=== PATIENT | female | born 1935 | race Two or more races ===

== ENCOUNTER → 2016-11-18 | Outpatient (CLI) | payer OTHER ==
[~2016-11-18] MED LIST: AML5T PO; ASP81EC PO; B-CO-5 PO; CARV6.25 PO; CHOL20006 PO; FER325T PO; FERR325T PO; LISI-646 PO; NOVOLIN SC; OMEP20TA44 PO; SERT-275 PO; SIMV10TA84 PO
[2016-11-18 11:06] LABS: Basophils # (auto) 0 uL; Basophils % (auto) 0.3 % (0.0-2.0); DEFINITIVE VIEW TRANSMISSION; Eosinophils # (auto) 0.1 uL; Eosinophils % (auto) 3.2 % (0.0-7.0); Hematocrit 23.7 % (36.0-46.0); Hemoglobin 7.6 g/dL (12.2-16.2); Lymphocytes # (auto) 0.7 uL; Mean Corpuscular Hemoglobin 31.2 pg (28.0-32.0); Mean Corpuscular Hgb Conc. 31.9 g/dL (32.0-36.0); Mean Corpuscular Volume 97.8 fL (80.0-100.0); Mean Platelet Volume 6.5 fL (7.4-10.4); Monocytes # (auto) 0.4 uL; Monocytes % (auto) 8.3 % (0.0-12.0); Neutrophils # (auto) 3.3 uL; Neutrophils % (auto) 73.2 % (37.0-80.0); Platelet Count (auto) 198 10^3/uL (140-450); Red Cell Distribution Width 19.2 % (11.6-16.0); White Blood Cell 4.6 10^3/uL (4.4-10.8)
== END | disposition home or self-care (01) ==
LOC: LAB 10:26
PROVIDERS: ATTEND Internal Medicine
DX: D46.9 Myelodysplastic syndrome, unspecified (principal)
CPT/HCPCS: 36415; 85025

== ENCOUNTER 2016-11-23 10:32 | Inpatient (IN) | payer OTHER ==
[2016-11-23] VITALS (7 sets, daily range): BP systolic 142–153; BP diastolic 48–63
[~2016-11-23] VITALS: Ht 152.4 cm; Wt 55.6 kg
[2016-11-23 12:05] LABS: Basophils # (auto) 0 uL; Basophils % (auto) 0.3 % (0.0-2.0); DEFINITIVE VIEW TRANSMISSION; Eosinophils # (auto) 0.2 uL; Eosinophils % (auto) 3.5 % (0.0-7.0); Hematocrit 22.7 % (36.0-46.0); Hemoglobin 7.4 g/dL (12.2-16.2); Lymphocytes # (auto) 0.6 uL; Lymphocytes % (auto) 14.3 % (10.0-50.0); Mean Corpuscular Hgb Conc. 32.8 g/dL (32.0-36.0); Mean Corpuscular Volume 97.6 fL (80.0-100.0); Monocytes # (auto) 0.4 uL; Monocytes % (auto) 9.7 % (0.0-12.0); Neutrophils # (auto) 3.3 uL; Neutrophils % (auto) 72.2 % (37.0-80.0); Platelet Count (auto) 166 10^3/uL (140-450); Red Cell Distribution Width 17.8 % (11.6-16.0); White Blood Cell 4.5 10^3/uL (4.4-10.8)
[2016-11-23 12:30] LABS: BUN/Creatinine Ratio 18.6; Calcium 9.1 mg/dL (8.5-10.1); Potassium 4.2 mmol/L (3.5-5.1)
[2016-11-23] MEDS ORDERED: ACETAMINOPHEN 500 MG TAB PO PRN (13:00)
[2016-11-23] MEDS ORDERED: DEXTROSE (50%) 50ML SYRG IV PRN (13:00)
[2016-11-23] MEDS ORDERED: ONDANSETRON HCL 4 MG/2 ML VIAL IV PRN (13:00)
[2016-11-23] MEDS ORDERED: PANTOPRAZOLE SODIUM 40 MG/10 ML VIAL IV ONE (13:00)
[2016-11-23] MEDS ORDERED: HYDROcodone-ACET 5/325MG TAB PO PRN (13:00)
[2016-11-23] MEDS ORDERED: LORazepam 0.5 MG TAB PO PRN (13:00)
[2016-11-23] MEDS ORDERED: TEMAZEPAM 15 MG CAP PO PRN (13:00)
[2016-11-23] MEDS ORDERED: LACTULOSE 20Gm/30ML SOLN PO PRN (13:00)
[2016-11-23] MEDS ORDERED: MORPHINE SULF INJ 2 MG/ML SYRINGE 1ML IV PRN ×2 (13:00)
[2016-11-23] MEDS ORDERED: NITROGLYCERIN 0.4 MG SL TAB SL PRN (13:00)
[2016-11-23] MEDS: D5W/SOD CHLO 0.9% 1,000 ML IV SCH ×2 (14:00→14:17)
[2016-11-23] MEDS: InsuLIN REG 1unit/0.01ml Soln (100units/ml) SC SCH ×3 (14:17→22:08)
[2016-11-23] MEDS: ACCU-CHEK COMFORT CURVE STRIP VI SCH ×3 (14:19→22:07)
[2016-11-23] MEDS ORDERED: EPOETIN ALFA 10,000 UNIT/1 ML VIAL IV ONE ×2 (15:00→16:30)
[2016-11-23 18:08] LABS: Urine RBC None Seen /hpf (0 - 4)
[2016-11-23 18:37] LABS: Urine Bilirubin Negative (Negative); Urine Blood Negative /uL (Negative); Urine Color Yellow (Yellow); Urine Glucose Normal (Normal); Urine Ketone Negative (Negative); Urine Nitrite Negative (Negative); Urine Squamous Epithelial Cell FEW /hpf (<5); Urine Urobilinogen Normal (Negative)
[2016-11-23 18:46] LABS: Hematocrit 19.8 % (36.0-46.0)
[2016-11-23 19:25] LABS: Hemoglobin 6.5 g/dL (12.2-16.2)
[2016-11-24] VITALS (8 sets, daily range): BP systolic 132–155; BP diastolic 52–68
[2016-11-24] MEDS: ACCU-CHEK COMFORT CURVE STRIP VI SCH ×3 (01:52→10:05)
[2016-11-24 07:04] LABS: Basophils # (auto) 0 uL; DEFINITIVE VIEW TRANSMISSION; Eosinophils # (auto) 0.2 uL; Eosinophils % (auto) 3.8 % (0.0-7.0); Hematocrit 27.7 % (36.0-46.0); Hemoglobin 9.2 g/dL (12.2-16.2); Lymphocytes # (auto) 0.7 uL; Lymphocytes % (auto) 17.4 % (10.0-50.0); Mean Corpuscular Hemoglobin 30.7 pg (28.0-32.0); Mean Corpuscular Hgb Conc. 33.3 g/dL (32.0-36.0); Mean Corpuscular Volume 92.3 fL (80.0-100.0); Mean Platelet Volume 6.8 fL (7.4-10.4); Monocytes # (auto) 0.4 uL; Monocytes % (auto) 10.8 % (0.0-12.0); Neutrophils # (auto) 2.7 uL; Platelet Count (auto) 138 10^3/uL (140-450)
[2016-11-24 07:22] LABS: BUN/Creatinine Ratio 18.3; Bilirubin, Total 0.7 mg/dL (0.2-1.0); Calcium 8.2 mg/dL (8.5-10.1); Potassium 4.4 mmol/L (3.5-5.1); Total Protein 6.2 g/dL (6.4-8.2)
[2016-11-24 07:37] LABS: Anisocytosis Slight; Platelet Estimate Decreased
[2016-11-24] MEDS ORDERED: PANTOPRAZOLE 40 MG TAB PO SCH (10:00)
[2016-11-24] MEDS ORDERED: AML5T PO (10:07)
== END 2016-11-24 12:15 | disposition home or self-care (01) | DRG 840 ==
LOC: ER 10:34 → TELE 10:35 → TELE-CENTR 15:38
PROVIDERS: ADMIT Internal Medicine; ATTEND Family Medicine
PROC: 30233N1 Transfusion of Nonautologous Red Blood Cells into Peripheral Vein, Percutaneous Approach (ICD-10-PCS; principal; 2016-11-23)
PROC: 30233N1 Transfusion of Nonautologous Red Blood Cells into Peripheral Vein, Percutaneous Approach (ICD-10-PCS; 2016-11-24)
DX: C85.90 Non-Hodgkin lymphoma, unspecified, unspecified site (principal); E43 Unspecified severe protein-calorie malnutrition; I13.0 Hypertensive heart and chronic kidney disease with heart failure and stage 1 through stage 4 chronic kidney disease, or unspecified chronic kidney disease; N18.4 Chronic kidney disease, stage 4 (severe); I42.9 Cardiomyopathy, unspecified; E11.649 Type 2 diabetes mellitus with hypoglycemia without coma; D64.9 Anemia, unspecified; J44.9 Chronic obstructive pulmonary disease, unspecified; E11.22 Type 2 diabetes mellitus with diabetic chronic kidney disease; I25.10 Atherosclerotic heart disease of native coronary artery without angina pectoris; I50.9 Heart failure, unspecified; K21.9 Gastro-esophageal reflux disease without esophagitis; Z82.49 Family history of ischemic heart disease and other diseases of the circulatory system; Z83.3 Family history of diabetes mellitus; Z84.89 Family history of other specified conditions; Z88.0 Allergy status to penicillin; Z88.5 Allergy status to narcotic agent; Z79.82 Long term (current) use of aspirin; Z79.4 Long term (current) use of insulin; Z79.899 Other long term (current) drug therapy; Z90.49 Acquired absence of other specified parts of digestive tract; Z90.710 Acquired absence of both cervix and uterus; Z95.0 Presence of cardiac pacemaker; Z68.23 Body mass index [BMI] 23.0-23.9, adult
CPT/HCPCS: 36415; 36430; 80048; 80053; 80061; 81001; 82270; 82378; 82962; 83036; 85014; 85018; 85025; 85045; 85049; 85652; 86141; 86850; 86900; 86901; 86920; 93005; 94761; 96361; 96374; 96375; C9113; J0885; J1815; J7042

== ENCOUNTER 2016-11-26 14:16 | Inpatient (IN) | payer OTHER ==
[~2016-11-26] VITALS: Ht 152.4 cm; Wt 47.3 kg
[2016-11-26] MEDS ORDERED: ACETAMINOPHEN 325 MG TAB PO ONE (14:30)
[2016-11-26 15:02] LABS: Basophils # (auto) 0 uL; Eosinophils # (auto) 0 uL; Hematocrit 28.5 % (36.0-46.0); Hemoglobin 9.4 g/dL (12.2-16.2); Lymphocytes # (auto) 0.5 uL; Mean Corpuscular Hemoglobin 30.7 pg (28.0-32.0); Mean Corpuscular Hgb Conc. 32.8 g/dL (32.0-36.0); Mean Corpuscular Volume 93.8 fL (80.0-100.0); Mean Platelet Volume 6.8 fL (7.4-10.4); Monocytes # (auto) 0.5 uL; Monocytes % (auto) 7.4 % (0.0-12.0); Neutrophils # (auto) 6.2 uL; Neutrophils % (auto) 85.6 % (37.0-80.0); Platelet Count (auto) 132 10^3/uL (140-450); Red Cell Distribution Width 18.9 % (11.6-16.0); White Blood Cell 7.2 10^3/uL (4.4-10.8)
[2016-11-26 15:08] LABS: Albumin 2.8 g/dL (3.4-5.0); Calcium 7.9 mg/dL (8.5-10.1); Potassium 4.5 mmol/L (3.5-5.1)
[2016-11-26 15:14] LABS: BUN/Creatinine Ratio 16.8; Total Protein 6.4 g/dL (6.4-8.2)
[2016-11-26] MEDS ORDERED: SODIUM CHLORIDE 0.9% 500 ML IV ONE (16:30)
[2016-11-26] MEDS ORDERED: methylPREDNISolone SOD SUCC 125 MG/2 ML VL IV ONE (16:30)
[2016-11-26] MEDS ORDERED: ALBUTEROL SULF 2.5 MG/0.5ML(0.5%) NEB SOLN NEB ONE (16:30)
[2016-11-26] MEDS ORDERED: LEVOFLOXACIN 500MG 100 ML IV ONE (16:30)
[2016-11-26] MEDS ORDERED: IPRATROPIUM BROM 0.5 MG/2.5ML INH SOL NEB ONE (16:30)
[2016-11-26] MEDS ORDERED: SODIUM CHLORIDE 0.9% 1,000 ML IV SCH (16:53)
[2016-11-26] MEDS ORDERED: NITROGLYCERIN 0.4 MG SL TAB SL PRN (17:00)
[2016-11-26] MEDS ORDERED: ALBUTEROL SULF 2.5 MG/0.5ML(0.5%) NEB SOLN NEB PRN (17:00)
[2016-11-26] MEDS ORDERED: PROMETHAZINE HCL 25 MG/ML 1ML IV PRN (17:00)
[2016-11-26] MEDS ORDERED: LORazepam 0.5 MG TAB PO PRN (17:00)
[2016-11-26] MEDS ORDERED: DEXTROSE (50%) 50ML SYRG IV PRN (17:00)
[2016-11-26] MEDS ORDERED: LACTULOSE 20Gm/30ML SOLN PO PRN (17:00)
[2016-11-26] MEDS ORDERED: MORPHINE SULF INJ 2 MG/ML SYRINGE 1ML IV PRN ×2 (17:00)
[2016-11-26] MEDS ORDERED: ACETAMINOPHEN 500 MG TAB PO PRN (17:00)
[2016-11-26] MEDS ORDERED: HYDROcodone-ACET 5/325MG TAB PO PRN (17:00)
[2016-11-26] MEDS ORDERED: OSELTAMIVIR 75 MG CAP PO ONE (17:30)
[2016-11-26] MEDS: ACCU-CHEK COMFORT CURVE STRIP VI SCH ×2 (17:37→21:42)
[2016-11-26] MEDS: InsuLIN REG 1unit/0.01ml Soln (100units/ml) SC SCH ×2 (17:37→21:51)
[2016-11-26 18:00] VITALS: BP 138/56
[2016-11-26] MEDS ORDERED: CHOLECALCIFEROL (VITD3) 1,000 UNIT TAB PO ONE (18:00)
[2016-11-26] MEDS ORDERED: B-COMPLEX W/ C & FOLIC ACID(NEPHROVITE TAB) PO ONE (18:00)
[2016-11-26] MEDS ORDERED: SERTRALINE HCL 50 MG TAB PO ONE (18:00)
[2016-11-26] MEDS ORDERED: PANTOPRAZOLE 40 MG TAB PO ONE (18:00)
[2016-11-26] MEDS ORDERED: ASPirin-EC 81 mg tab PO ONE (18:00)
[2016-11-26] MEDS ORDERED: amLODIPine BESYLATE 5 MG TAB PO ONE (18:00)
[2016-11-26] MEDS: ALBUTEROL SULF 2.5 MG/0.5ML(0.5%) NEB SOLN NEB SCH (19:25)
[2016-11-26] MEDS: IPRATROPIUM BROM 0.5 MG/2.5ML INH SOL NEB SCH (19:25)
[2016-11-26] MEDS ORDERED: FUROSEMIDE 40 MG/4 ML VIAL IV ONE (19:30)
[2016-11-26] MEDS: FERROUS SULFATE 325 MG TAB PO SCH (19:41)
[2016-11-26] MEDS: ENOXAPARIN SOD 30 MG/0.3 ML SYRINGE SC SCH (19:48)
[2016-11-26] MEDS: CARVEDILOL 3.125 MG TAB PO SCH (21:41)
[2016-11-26] MEDS: PRAVASTATIN SODIUM 20 MG TAB PO SCH (21:42)
[2016-11-26] MEDS: TEMAZEPAM 15 MG CAP PO PRN (21:43)
[2016-11-26 22:00] VITALS: BP 135/57
[2016-11-27] MEDS: IPRATROPIUM BROM 0.5 MG/2.5ML INH SOL NEB SCH ×4 (01:25→19:05)
[2016-11-27] MEDS: ALBUTEROL SULF 2.5 MG/0.5ML(0.5%) NEB SOLN NEB SCH ×4 (01:25→19:04)
[2016-11-27 04:59] VITALS: BP 131/52
[2016-11-27 05:56] LABS: Basophils # (auto) 0 uL; Eosinophils # (auto) 0 uL; Hematocrit 30.1 % (36.0-46.0); Hemoglobin 9.8 g/dL (12.2-16.2); Lymphocytes # (auto) 0.3 uL; Lymphocytes % (auto) 9.1 % (10.0-50.0); Mean Corpuscular Hemoglobin 30.5 pg (28.0-32.0); Mean Corpuscular Hgb Conc. 32.7 g/dL (32.0-36.0); Mean Corpuscular Volume 93.3 fL (80.0-100.0); Mean Platelet Volume 7.3 fL (7.4-10.4); Monocytes # (auto) 0 uL; Monocytes % (auto) 0.5 % (0.0-12.0); Neutrophils # (auto) 3.2 uL; Neutrophils % (auto) 90.4 % (37.0-80.0); Platelet Count (auto) 127 10^3/uL (140-450); Red Cell Distribution Width 17.7 % (11.6-16.0); White Blood Cell 3.5 10^3/uL (4.4-10.8)
[2016-11-27 06:11] LABS: Albumin 2.9 g/dL (3.4-5.0); BUN/Creatinine Ratio 20.2; Calcium 7.9 mg/dL (8.5-10.1); Potassium 4.1 mmol/L (3.5-5.1)
[2016-11-27 06:14] LABS: Bilirubin, Total 0.8 mg/dL (0.2-1.0); Total Protein 6.7 g/dL (6.4-8.2)
[2016-11-27] MEDS: methylPREDNISolone SOD SUCC 40 MG/ML VL IV SCH ×4 (06:19→18:14)
[2016-11-27] MEDS: ACCU-CHEK COMFORT CURVE STRIP VI SCH ×4 (06:19→22:07)
[2016-11-27] MEDS: InsuLIN REG 1unit/0.01ml Soln (100units/ml) SC SCH ×4 (06:27→22:10)
[2016-11-27 09:00] VITALS: BP 139/56
[2016-11-27] MEDS: LISINOPRIL 20 MG TAB PO SCH (09:15)
[2016-11-27] MEDS: PANTOPRAZOLE 40 MG TAB PO SCH (09:15)
[2016-11-27] MEDS: ASPirin-EC 81 mg tab PO SCH (09:15)
[2016-11-27] MEDS: CHOLECALCIFEROL (VITD3) 1,000 UNIT TAB PO SCH (09:16)
[2016-11-27] MEDS: SERTRALINE HCL 50 MG TAB PO SCH (09:16)
[2016-11-27] MEDS: FERROUS SULFATE 325 MG TAB PO SCH ×2 (09:17→18:16)
[2016-11-27] MEDS: B-COMPLEX W/ C & FOLIC ACID(NEPHROVITE TAB) PO SCH (09:17)
[2016-11-27] MEDS: CARVEDILOL 3.125 MG TAB PO SCH ×2 (09:17→21:53)
[2016-11-27] MEDS: FUROSEMIDE 40 MG/4 ML VIAL IV SCH (09:18)
[2016-11-27] MEDS: LEVOFLOXACIN 250MG 50 ML IV SCH (09:18)
[2016-11-27] MEDS: amLODIPine BESYLATE 5 MG TAB PO SCH (09:18)
[2016-11-27] MEDS: ENOXAPARIN SOD 30 MG/0.3 ML SYRINGE SC SCH (09:19)
[2016-11-27] MEDS ORDERED: OSELTAMIVIR 30 MG CAP PO SCH (10:00)
[2016-11-27] MEDS ORDERED: PATIENTS OWN MEDICATION (Ferrous Sulfate 325 MG) PO SCH ×2 (10:00)
[2016-11-27 12:47] VITALS: BP 138/59
[2016-11-27 16:46] VITALS: BP 126/62
[2016-11-27 21:32] VITALS: BP 133/60
[2016-11-27] MEDS: PRAVASTATIN SODIUM 20 MG TAB PO SCH (21:53)
[2016-11-27] MEDS: TEMAZEPAM 15 MG CAP PO PRN (22:11)
[2016-11-28] MEDS: ALBUTEROL SULF 2.5 MG/0.5ML(0.5%) NEB SOLN NEB SCH ×5 (00:20→23:32)
[2016-11-28] MEDS: IPRATROPIUM BROM 0.5 MG/2.5ML INH SOL NEB SCH ×5 (00:20→23:32)
[2016-11-28 05:27] VITALS: BP 129/58
[2016-11-28] MEDS: methylPREDNISolone SOD SUCC 40 MG/ML VL IV SCH ×2 (06:13)
[2016-11-28] MEDS: ACCU-CHEK COMFORT CURVE STRIP VI SCH ×4 (06:34→21:41)
[2016-11-28] MEDS: InsuLIN REG 1unit/0.01ml Soln (100units/ml) SC SCH ×4 (06:39→22:20)
[2016-11-28 08:41] VITALS: BP 134/63
[2016-11-28] MEDS: SERTRALINE HCL 50 MG TAB PO SCH (09:09)
[2016-11-28] MEDS: amLODIPine BESYLATE 5 MG TAB PO SCH (09:10)
[2016-11-28] MEDS: CARVEDILOL 3.125 MG TAB PO SCH ×2 (09:10→21:40)
[2016-11-28] MEDS: B-COMPLEX W/ C & FOLIC ACID(NEPHROVITE TAB) PO SCH (09:10)
[2016-11-28] MEDS: ASPirin-EC 81 mg tab PO SCH (09:10)
[2016-11-28] MEDS: FERROUS SULFATE 325 MG TAB PO SCH ×2 (09:10→17:20)
[2016-11-28] MEDS: FUROSEMIDE 40 MG/4 ML VIAL IV SCH (09:11)
[2016-11-28] MEDS: ENOXAPARIN SOD 30 MG/0.3 ML SYRINGE SC SCH (09:11)
[2016-11-28] MEDS: LISINOPRIL 20 MG TAB PO SCH (09:11)
[2016-11-28] MEDS: PANTOPRAZOLE 40 MG TAB PO SCH (09:11)
[2016-11-28] MEDS: CHOLECALCIFEROL (VITD3) 1,000 UNIT TAB PO SCH (09:11)
[2016-11-28] MEDS: LEVOFLOXACIN 250MG 50 ML IV SCH (09:12)
[2016-11-28 12:33] VITALS: BP 131/56
[2016-11-28 16:48] VITALS: BP 135/63
[2016-11-28 21:29] VITALS: BP 132/53
[2016-11-28] MEDS: PRAVASTATIN SODIUM 20 MG TAB PO SCH (21:41)
[2016-11-29 05:13] VITALS: BP 133/61
[2016-11-29] MEDS: ALBUTEROL SULF 2.5 MG/0.5ML(0.5%) NEB SOLN NEB SCH ×3 (05:49→18:43)
[2016-11-29] MEDS: IPRATROPIUM BROM 0.5 MG/2.5ML INH SOL NEB SCH ×3 (05:49→18:43)
[2016-11-29] MEDS: InsuLIN REG 1unit/0.01ml Soln (100units/ml) SC SCH ×4 (06:28→22:34)
[2016-11-29] MEDS: ACCU-CHEK COMFORT CURVE STRIP VI SCH ×4 (06:28→22:27)
[2016-11-29] MEDS ORDERED: FUROSEMIDE 40 MG/4 ML VIAL IV ONE (08:30)
[2016-11-29 09:00] VITALS: BP 146/58
[2016-11-29] MEDS: PANTOPRAZOLE 40 MG TAB PO SCH (09:39)
[2016-11-29] MEDS: LISINOPRIL 20 MG TAB PO SCH (09:39)
[2016-11-29] MEDS: ASPirin-EC 81 mg tab PO SCH (09:40)
[2016-11-29] MEDS: FERROUS SULFATE 325 MG TAB PO SCH ×2 (09:40→18:16)
[2016-11-29] MEDS: amLODIPine BESYLATE 5 MG TAB PO SCH (09:40)
[2016-11-29] MEDS: SERTRALINE HCL 50 MG TAB PO SCH (09:40)
[2016-11-29] MEDS: CHOLECALCIFEROL (VITD3) 1,000 UNIT TAB PO SCH (09:41)
[2016-11-29] MEDS: B-COMPLEX W/ C & FOLIC ACID(NEPHROVITE TAB) PO SCH (09:41)
[2016-11-29] MEDS: CARVEDILOL 3.125 MG TAB PO SCH ×2 (09:41→22:27)
[2016-11-29] MEDS: FUROSEMIDE 40 MG/4 ML VIAL IV SCH (09:42)
[2016-11-29 12:52] VITALS: BP 132/64
[2016-11-29 16:48] VITALS: BP 137/62
[2016-11-29 20:45] VITALS: BP 137/62
[2016-11-29 22:00] VITALS: BP 144/60
[2016-11-29] MEDS: PRAVASTATIN SODIUM 20 MG TAB PO SCH (22:26)
[2016-11-29] MEDS: COLCHICINE 0.6 MG TAB/CAP PO SCH (22:26)
[2016-11-30] MEDS: IPRATROPIUM BROM 0.5 MG/2.5ML INH SOL NEB SCH ×4 (00:29→18:50)
[2016-11-30] MEDS: ALBUTEROL SULF 2.5 MG/0.5ML(0.5%) NEB SOLN NEB SCH ×4 (00:29→18:50)
[2016-11-30 05:00] VITALS: BP 140/60
[2016-11-30 06:28] LABS: Basophils # (auto) 0 uL; Basophils % (auto) 0.1 % (0.0-2.0); Eosinophils # (auto) 0.1 uL; Hematocrit 34.9 % (36.0-46.0); Hemoglobin 11.4 g/dL (12.2-16.2); Lymphocytes # (auto) 0.7 uL; Lymphocytes % (auto) 12.9 % (10.0-50.0); Mean Corpuscular Hemoglobin 30.6 pg (28.0-32.0); Mean Corpuscular Hgb Conc. 32.6 g/dL (32.0-36.0); Mean Corpuscular Volume 93.9 fL (80.0-100.0); Mean Platelet Volume 7.4 fL (7.4-10.4); Monocytes # (auto) 0.6 uL; Monocytes % (auto) 9.7 % (0.0-12.0); Neutrophils # (auto) 4.4 uL; Neutrophils % (auto) 76.3 % (37.0-80.0); Platelet Count (auto) 189 10^3/uL (140-450); Red Cell Distribution Width 18.5 % (11.6-16.0); White Blood Cell 5.8 10^3/uL (4.4-10.8)
[2016-11-30 06:56] LABS: BUN/Creatinine Ratio 32.8; Calcium 8.1 mg/dL (8.5-10.1); Potassium 3.5 mmol/L (3.5-5.1)
[2016-11-30] MEDS: InsuLIN REG 1unit/0.01ml Soln (100units/ml) SC SCH ×4 (07:00→22:27)
[2016-11-30] MEDS: ACCU-CHEK COMFORT CURVE STRIP VI SCH ×4 (07:21→21:37)
[2016-11-30] MEDS: COLCHICINE 0.6 MG TAB/CAP PO SCH ×2 (09:07→21:36)
[2016-11-30] MEDS: CHOLECALCIFEROL (VITD3) 1,000 UNIT TAB PO SCH (09:07)
[2016-11-30] MEDS: B-COMPLEX W/ C & FOLIC ACID(NEPHROVITE TAB) PO SCH (09:07)
[2016-11-30] MEDS: FERROUS SULFATE 325 MG TAB PO SCH ×2 (09:07→17:19)
[2016-11-30] MEDS: amLODIPine BESYLATE 5 MG TAB PO SCH (09:08)
[2016-11-30] MEDS: SERTRALINE HCL 50 MG TAB PO SCH (09:08)
[2016-11-30] MEDS: ASPirin-EC 81 mg tab PO SCH (09:08)
[2016-11-30] MEDS: LISINOPRIL 20 MG TAB PO SCH (09:09)
[2016-11-30] MEDS: PANTOPRAZOLE 40 MG TAB PO SCH (09:09)
[2016-11-30] MEDS: CARVEDILOL 3.125 MG TAB PO SCH ×2 (09:10→21:37)
[2016-11-30 09:14] VITALS: BP 130/52
[2016-11-30] MEDS: LISINOPRIL 10 MG TAB PO SCH (10:00)
[2016-11-30 14:04] VITALS: BP 133/63
[2016-11-30 17:01] VITALS: BP 128/57
[2016-11-30] MEDS: PRAVASTATIN SODIUM 20 MG TAB PO SCH (21:36)
[2016-11-30 21:44] VITALS: BP 131/56
[2016-12-01] MEDS: IPRATROPIUM BROM 0.5 MG/2.5ML INH SOL NEB SCH ×4 (01:00→19:13)
[2016-12-01] MEDS: ALBUTEROL SULF 2.5 MG/0.5ML(0.5%) NEB SOLN NEB SCH ×4 (01:00→19:13)
[2016-12-01 05:34] VITALS: BP 139/65
[2016-12-01 05:54] LABS: Potassium 4.1 mmol/L (3.5-5.1)
[2016-12-01 06:07] LABS: BUN/Creatinine Ratio 34.1
[2016-12-01] MEDS: ACCU-CHEK COMFORT CURVE STRIP VI SCH ×4 (06:15→22:05)
[2016-12-01] MEDS: InsuLIN REG 1unit/0.01ml Soln (100units/ml) SC SCH ×4 (06:15→22:00)
[2016-12-01 07:18] LABS: INR 1.13 (0.9-1.15); Partial Thromboplastin Time 24.4 sec (22.64-33.71); Prothrombin Time 11.6 sec (9.37-12.3)
[2016-12-01] MEDS: FERROUS SULFATE 325 MG TAB PO SCH ×2 (08:00→18:01)
[2016-12-01 08:38] VITALS: BP 133/66
[2016-12-01] MEDS: CARVEDILOL 3.125 MG TAB PO SCH ×2 (09:35→22:01)
[2016-12-01] MEDS: B-COMPLEX W/ C & FOLIC ACID(NEPHROVITE TAB) PO SCH (09:35)
[2016-12-01] MEDS: ASPirin-EC 81 mg tab PO SCH (09:35)
[2016-12-01] MEDS: COLCHICINE 0.6 MG TAB/CAP PO SCH ×2 (09:35→22:00)
[2016-12-01] MEDS: amLODIPine BESYLATE 5 MG TAB PO SCH (09:36)
[2016-12-01] MEDS: PANTOPRAZOLE 40 MG TAB PO SCH (09:36)
[2016-12-01] MEDS: SERTRALINE HCL 50 MG TAB PO SCH (09:38)
[2016-12-01] MEDS: LISINOPRIL 10 MG TAB PO SCH (09:38)
[2016-12-01] MEDS: CHOLECALCIFEROL (VITD3) 1,000 UNIT TAB PO SCH (09:38)
[2016-12-01] MEDS ORDERED: LIDOCAINE 2%HCL (LOCAL ANESTH.) INJ 20ML MDV ONE (10:06)
[2016-12-01] MEDS ORDERED: FLUCONAZOLE 200MG/100ML 100 ML IV ONE (10:30)
[2016-12-01 13:00] VITALS: BP 148/61
[2016-12-01 17:00] VITALS: BP 131/54
[2016-12-01 22:00] VITALS: BP 135/64
[2016-12-01] MEDS: PRAVASTATIN SODIUM 20 MG TAB PO SCH (22:00)
[2016-12-01] MEDS: TEMAZEPAM 15 MG CAP PO PRN (23:33)
[2016-12-02] VITALS (22 sets, daily range): BP systolic 122–164; BP diastolic 46–81
[2016-12-02] MEDS: IPRATROPIUM BROM 0.5 MG/2.5ML INH SOL NEB SCH ×4 (00:58→19:18)
[2016-12-02] MEDS: ALBUTEROL SULF 2.5 MG/0.5ML(0.5%) NEB SOLN NEB SCH ×4 (00:58→19:17)
[2016-12-02 05:56] LABS: Basophils # (auto) 0 uL; Eosinophils # (auto) 0.3 uL; Eosinophils % (auto) 4.8 % (0.0-7.0); Hematocrit 36.2 % (36.0-46.0); Hemoglobin 11.6 g/dL (12.2-16.2); Lymphocytes # (auto) 0.6 uL; Lymphocytes % (auto) 9.2 % (10.0-50.0); Mean Corpuscular Hemoglobin 30.6 pg (28.0-32.0); Mean Corpuscular Hgb Conc. 32.1 g/dL (32.0-36.0); Mean Corpuscular Volume 95.4 fL (80.0-100.0); Mean Platelet Volume 7.3 fL (7.4-10.4); Monocytes # (auto) 0.6 uL; Monocytes % (auto) 8.8 % (0.0-12.0); Neutrophils # (auto) 5.4 uL; Neutrophils % (auto) 77.2 % (37.0-80.0); Platelet Count (auto) 165 10^3/uL (140-450); Red Cell Distribution Width 18.7 % (11.6-16.0)
[2016-12-02 06:25] LABS: Potassium 4.1 mmol/L (3.5-5.1)
[2016-12-02 06:31] LABS: BUN/Creatinine Ratio 29.2; Calcium 8.6 mg/dL (8.5-10.1)
[2016-12-02] MEDS: InsuLIN REG 1unit/0.01ml Soln (100units/ml) SC SCH ×4 (06:55→22:00)
[2016-12-02] MEDS: ACCU-CHEK COMFORT CURVE STRIP VI SCH ×4 (06:55→22:00)
[2016-12-02] MEDS: FERROUS SULFATE 325 MG TAB PO SCH (08:00)
[2016-12-02] MEDS: LISINOPRIL 10 MG TAB PO SCH (10:00)
[2016-12-02] MEDS: CHOLECALCIFEROL (VITD3) 1,000 UNIT TAB PO SCH (10:00)
[2016-12-02] MEDS: B-COMPLEX W/ C & FOLIC ACID(NEPHROVITE TAB) PO SCH (10:00)
[2016-12-02] MEDS: PANTOPRAZOLE 40 MG TAB PO SCH (10:00)
[2016-12-02] MEDS: CARVEDILOL 3.125 MG TAB PO SCH ×2 (10:00→16:14)
[2016-12-02] MEDS: SERTRALINE HCL 50 MG TAB PO SCH (10:00)
[2016-12-02] MEDS: ASPirin-EC 81 mg tab PO SCH (10:00)
[2016-12-02] MEDS: amLODIPine BESYLATE 5 MG TAB PO SCH (10:00)
[2016-12-02] MEDS: FLUCONAZOLE 200MG/100ML 100 ML IV SCH (10:00)
[2016-12-02] MEDS: COLCHICINE 0.6 MG TAB/CAP PO SCH ×2 (10:00→22:42)
[2016-12-02] MEDS ORDERED: fentaNYL CITRATE 100 MCG/2 ML VL ONE (12:46)
[2016-12-02] MEDS ORDERED: MIDAZOLAM HCL 1MG/1ML-2 ML VIAL ONE (12:46)
[2016-12-02] MEDS ORDERED: LIDOCAINE 2%HCL (LOCAL ANESTH.) INJ 20ML MDV ONE (13:57)
[2016-12-02 20:48] LABS: Body Fluid Polymorphonuclear 75 %
[2016-12-02] MEDS: PRAVASTATIN SODIUM 20 MG TAB PO SCH (22:43)
[2016-12-03] VITALS (26 sets, daily range): BP systolic 103–151; BP diastolic 35–87
[2016-12-03] MEDS: IPRATROPIUM BROM 0.5 MG/2.5ML INH SOL NEB SCH ×4 (00:59→19:10)
[2016-12-03] MEDS: ALBUTEROL SULF 2.5 MG/0.5ML(0.5%) NEB SOLN NEB SCH ×4 (00:59→19:10)
[2016-12-03 04:19] LABS: BUN/Creatinine Ratio 34.5; Calcium 8.2 mg/dL (8.5-10.1)
[2016-12-03] MEDS: InsuLIN REG 1unit/0.01ml Soln (100units/ml) SC SCH ×4 (06:00→22:00)
[2016-12-03] MEDS: ACCU-CHEK COMFORT CURVE STRIP VI SCH ×4 (06:16→22:11)
[2016-12-03] MEDS: FLUCONAZOLE 200MG/100ML 100 ML IV SCH (10:09)
[2016-12-03] MEDS: COLCHICINE 0.6 MG TAB/CAP PO SCH ×2 (10:10→22:19)
[2016-12-03] MEDS: ASPirin-EC 81 mg tab PO SCH (10:10)
[2016-12-03] MEDS: B-COMPLEX W/ C & FOLIC ACID(NEPHROVITE TAB) PO SCH (10:11)
[2016-12-03] MEDS: PANTOPRAZOLE 40 MG TAB PO SCH (10:13)
[2016-12-03] MEDS: amLODIPine BESYLATE 5 MG TAB PO SCH (10:13)
[2016-12-03] MEDS: CHOLECALCIFEROL (VITD3) 1,000 UNIT TAB PO SCH (10:13)
[2016-12-03] MEDS: LISINOPRIL 10 MG TAB PO SCH (10:14)
[2016-12-03] MEDS: SERTRALINE HCL 50 MG TAB PO SCH (10:15)
[2016-12-03] MEDS ORDERED: CARVEDILOL 3.125 MG TAB PO SCH (10:45)
[2016-12-03] MEDS ORDERED: FERROUS SULFATE 325 MG TAB PO SCH (10:45)
[2016-12-03] MEDS ORDERED: FERROUS SULFATE 325 MG TAB PO ONE (10:45)
[2016-12-03] MEDS: FERROUS SULFATE 325 MG TAB PO SCH ×2 (16:50→18:13)
[2016-12-03] MEDS: CARVEDILOL 3.125 MG TAB PO SCH ×2 (16:51→22:19)
[2016-12-03] MEDS: PRAVASTATIN SODIUM 20 MG TAB PO SCH (22:17)
[2016-12-04] VITALS (7 sets, daily range): BP systolic 120–142; BP diastolic 50–98
[2016-12-04] MEDS: ALBUTEROL SULF 2.5 MG/0.5ML(0.5%) NEB SOLN NEB SCH ×4 (01:00→18:37)
[2016-12-04] MEDS: IPRATROPIUM BROM 0.5 MG/2.5ML INH SOL NEB SCH ×4 (01:00→18:37)
[2016-12-04 04:53] LABS: Basophils # (auto) 0 uL; Basophils % (auto) 0.1 % (0.0-2.0); Eosinophils # (auto) 0.2 uL; Eosinophils % (auto) 2.5 % (0.0-7.0); Hematocrit 32.5 % (36.0-46.0); Hemoglobin 10.5 g/dL (12.2-16.2); Lymphocytes # (auto) 0.7 uL; Lymphocytes % (auto) 10.9 % (10.0-50.0); Mean Corpuscular Hemoglobin 30.6 pg (28.0-32.0); Mean Corpuscular Hgb Conc. 32.2 g/dL (32.0-36.0); Mean Corpuscular Volume 95.3 fL (80.0-100.0); Mean Platelet Volume 7.4 fL (7.4-10.4); Monocytes # (auto) 0.7 uL; Monocytes % (auto) 11.7 % (0.0-12.0); Neutrophils # (auto) 4.7 uL; Neutrophils % (auto) 74.8 % (37.0-80.0); Platelet Count (auto) 135 10^3/uL (140-450); Red Cell Distribution Width 17.9 % (11.6-16.0); White Blood Cell 6.3 10^3/uL (4.4-10.8)
[2016-12-04 05:05] LABS: Calcium 7.8 mg/dL (8.5-10.1); Potassium 3.8 mmol/L (3.5-5.1)
[2016-12-04 05:07] LABS: BUN/Creatinine Ratio 33.5
[2016-12-04] MEDS: InsuLIN REG 1unit/0.01ml Soln (100units/ml) SC SCH ×2 (06:42→11:30)
[2016-12-04] MEDS: ACCU-CHEK COMFORT CURVE STRIP VI SCH ×2 (06:42→11:30)
[2016-12-04] MEDS ORDERED: TEMAZEPAM 15 MG CAP PO PRN (10:00)
[2016-12-04] MEDS ORDERED: MORPHINE SULF INJ 2 MG/ML SYRINGE 1ML IV PRN ×2 (10:00)
[2016-12-04] MEDS ORDERED: HYDROcodone-ACET 5/325MG TAB PO PRN (10:00)
[2016-12-04] MEDS ORDERED: LORazepam 0.5 MG TAB PO PRN (10:00)
[2016-12-04] MEDS: B-COMPLEX W/ C & FOLIC ACID(NEPHROVITE TAB) PO SCH (12:01)
[2016-12-04] MEDS: FLUCONAZOLE 200MG/100ML 100 ML IV SCH (12:01)
[2016-12-04] MEDS: PANTOPRAZOLE 40 MG TAB PO SCH (12:01)
[2016-12-04] MEDS: SERTRALINE HCL 50 MG TAB PO SCH (12:01)
[2016-12-04] MEDS: ASPirin-EC 81 mg tab PO SCH (12:01)
[2016-12-04] MEDS: CHOLECALCIFEROL (VITD3) 1,000 UNIT TAB PO SCH (12:01)
[2016-12-04] MEDS: COLCHICINE 0.6 MG TAB/CAP PO SCH (12:02)
[2016-12-04] MEDS: FERROUS SULFATE 325 MG TAB PO SCH (16:35)
[2016-12-04] MEDS: CARVEDILOL 3.125 MG TAB PO SCH (16:37)
[2016-12-04] MEDS: LISINOPRIL 10 MG TAB PO SCH (16:37)
[2016-12-04] MEDS: amLODIPine BESYLATE 5 MG TAB PO SCH (16:38)
== END 2016-12-04 19:00 | disposition home or self-care (01) | DRG 286 ==
LOC: EDBD 14:16 → ER 14:27 → TELE 14:28 → TELE-CENTR 17:58 → ICU WEST 12-02 17:09 → TELE-CENTR 12-03 16:45
PROVIDERS: ADMIT Internal Medicine; ATTEND Internal Medicine
PROC: B2111ZZ Fluoroscopy of Multiple Coronary Arteries using Low Osmolar Contrast (ICD-10-PCS; principal; 2016-12-02)
PROC: B2151ZZ Fluoroscopy of Left Heart using Low Osmolar Contrast (ICD-10-PCS; 2016-12-02)
PROC: 4A023N7 Measurement of Cardiac Sampling and Pressure, Left Heart, Percutaneous Approach (ICD-10-PCS; 2016-12-02)
PROC: 0W9D30Z Drainage of Pericardial Cavity with Drainage Device, Percutaneous Approach (ICD-10-PCS; 2016-12-02)
DX: I31.3 Pericardial effusion (noninflammatory) (principal); I50.43 Acute on chronic combined systolic (congestive) and diastolic (congestive) heart failure; I13.0 Hypertensive heart and chronic kidney disease with heart failure and stage 1 through stage 4 chronic kidney disease, or unspecified chronic kidney disease; J44.0 Chronic obstructive pulmonary disease with (acute) lower respiratory infection; C85.90 Non-Hodgkin lymphoma, unspecified, unspecified site; J45.901 Unspecified asthma with (acute) exacerbation; K92.2 Gastrointestinal hemorrhage, unspecified; J44.1 Chronic obstructive pulmonary disease with (acute) exacerbation; I42.0 Dilated cardiomyopathy; E44.0 Moderate protein-calorie malnutrition; I35.1 Nonrheumatic aortic (valve) insufficiency; I71.2 Thoracic aortic aneurysm, without rupture; I25.10 Atherosclerotic heart disease of native coronary artery without angina pectoris; J20.9 Acute bronchitis, unspecified; K21.9 Gastro-esophageal reflux disease without esophagitis; E11.21 Type 2 diabetes mellitus with diabetic nephropathy; E11.22 Type 2 diabetes mellitus with diabetic chronic kidney disease; Z80.8 Family history of malignant neoplasm of other organs or systems; D64.9 Anemia, unspecified; Z83.3 Family history of diabetes mellitus; Z92.21 Personal history of antineoplastic chemotherapy; Z88.5 Allergy status to narcotic agent; Z88.0 Allergy status to penicillin; D69.6 Thrombocytopenia, unspecified; N18.3 Chronic kidney disease, stage 3 (moderate); Z68.22 Body mass index [BMI] 22.0-22.9, adult; Z82.49 Family history of ischemic heart disease and other diseases of the circulatory system; Z85.9 Personal history of malignant neoplasm, unspecified; Z90.710 Acquired absence of both cervix and uterus; Z90.89 Acquired absence of other organs; Z98.890 Other specified postprocedural states; Z95.0 Presence of cardiac pacemaker
CPT/HCPCS: 36415; 71010; 71020; 80048; 80053; 82945; 82962; 83036; 84155; 84157; 85025; 85049; 85610; 85730; 87070; 87081; 87205; 87400; 89051; 93306; 93458; 94640; 96365; 96375; 97001; 97110; 97116; 97530; 99152; 99291; G9035; J1450; J1815; J1956; J2250

== ENCOUNTER → 2016-12-14 | Outpatient (CLI) | payer OTHER ==
[2016-12-14 11:06] LABS: Basophils # (auto) 0 uL; Basophils % (auto) 0.3 % (0.0-2.0); Eosinophils # (auto) 0.1 uL; Eosinophils % (auto) 2.5 % (0.0-7.0); Hematocrit 31.9 % (36.0-46.0); Hemoglobin 10.3 g/dL (12.2-16.2); Lymphocytes # (auto) 0.6 uL; Lymphocytes % (auto) 17.3 % (10.0-50.0); Mean Corpuscular Hemoglobin 29.8 pg (28.0-32.0); Mean Corpuscular Hgb Conc. 32.1 g/dL (32.0-36.0); Mean Corpuscular Volume 92.7 fL (80.0-100.0); Mean Platelet Volume 7.7 fL (7.4-10.4); Monocytes # (auto) 0.5 uL; Monocytes % (auto) 13.1 % (0.0-12.0); Neutrophils # (auto) 2.3 uL; Neutrophils % (auto) 66.8 % (37.0-80.0); Platelet Count (auto) 201 10^3/uL (140-450); Red Cell Distribution Width 17.1 % (11.6-16.0); White Blood Cell 3.4 10^3/uL (4.4-10.8)
== END | disposition home or self-care (01) ==
LOC: LAB 10:03
PROVIDERS: ATTEND Internal Medicine
DX: D46.9 Myelodysplastic syndrome, unspecified (principal)
CPT/HCPCS: 36415; 85025

== ENCOUNTER → 2016-12-24 | Outpatient (CLI) | payer OTHER | END | disposition home or self-care (01) | LOC: XYW 07:41 | PROVIDERS: ATTEND Internal Medicine Cardiovascular Disease | DX: I35.0 Nonrheumatic aortic (valve) stenosis (principal); I05.0 Rheumatic mitral stenosis | CPT/HCPCS: 93306 ==

== ENCOUNTER → 2017-01-01 | Outpatient (CLI) | payer OTHER ==
[2017-01-01 09:27] LABS: Basophils # (auto) 0 uL; Basophils % (auto) 0.2 % (0.0-2.0); Eosinophils # (auto) 0.2 uL; Eosinophils % (auto) 3.6 % (0.0-7.0); Hematocrit 29.7 % (36.0-46.0); Lymphocytes # (auto) 0.6 uL; Lymphocytes % (auto) 13.7 % (10.0-50.0); Mean Corpuscular Hemoglobin 31.5 pg (28.0-32.0); Mean Corpuscular Hgb Conc. 33.8 g/dL (32.0-36.0); Mean Corpuscular Volume 93.3 fL (80.0-100.0); Monocytes # (auto) 0.4 uL; Monocytes % (auto) 9.5 % (0.0-12.0); Neutrophils # (auto) 3.3 uL; Platelet Count (auto) 223 10^3/uL (140-450); Red Cell Distribution Width 18.8 % (11.6-16.0); White Blood Cell 4.5 10^3/uL (4.4-10.8)
[2017-01-01 09:44] LABS: Albumin 3.6 g/dL (3.4-5.0); BUN/Creatinine Ratio 18.6; Calcium 8.7 mg/dL (8.5-10.1); Phosphorus 4.3 mg/dL (2.5-4.90); Potassium 5.1 mmol/L (3.5-5.1)
[2017-01-01 10:38] LABS: Urine Bilirubin Negative (Negative); Urine Blood Negative /uL (Negative); Urine Color Yellow (Yellow); Urine Glucose TRACE mg/dL (Normal); Urine Hyaline Cast FEW /lpf (0 - 2); Urine Ketone Negative (Negative); Urine Mucus FEW (None Seen); Urine Nitrite Negative (Negative); Urine RBC 1 /hpf (0 - 4); Urine Squamous Epithelial Cell FEW /hpf (<5); Urine pH 5.5 (5.0-8.0)
[2017-01-01 10:42] LABS: Urine Protein/Creatinine Ratio 1.22
== END | disposition home or self-care (01) ==
LOC: LAB 08:45
PROVIDERS: ATTEND Internal Medicine
DX: E55.9 Vitamin D deficiency, unspecified (principal); R80.9 Proteinuria, unspecified
CPT/HCPCS: 36415; 80069; 81001; 82306; 82570; 83036; 83970; 84156; 84550; 85025

== ENCOUNTER → 2017-01-06 | Outpatient (CLI) | payer OTHER ==
[2017-01-06 11:23] LABS: Basophils # (auto) 0 uL; Basophils % (auto) 0.3 % (0.0-2.0); Eosinophils # (auto) 0.2 uL; Eosinophils % (auto) 3.7 % (0.0-7.0); Hematocrit 28.3 % (36.0-46.0); Hemoglobin 9.5 g/dL (12.2-16.2); Lymphocytes # (auto) 0.7 uL; Lymphocytes % (auto) 13.8 % (10.0-50.0); Mean Corpuscular Hemoglobin 31.9 pg (28.0-32.0); Mean Corpuscular Hgb Conc. 33.7 g/dL (32.0-36.0); Mean Corpuscular Volume 94.5 fL (80.0-100.0); Mean Platelet Volume 6.7 fL (7.4-10.4); Monocytes # (auto) 0.5 uL; Neutrophils # (auto) 3.4 uL; Neutrophils % (auto) 72.2 % (37.0-80.0); Platelet Count (auto) 221 10^3/uL (140-450); Red Cell Distribution Width 18.9 % (11.6-16.0); White Blood Cell 4.7 10^3/uL (4.4-10.8)
[2017-01-06 11:45] LABS: Albumin 3.5 g/dL (3.4-5.0); BUN/Creatinine Ratio 19.3; Bilirubin, Total 0.5 mg/dL (0.2-1.0); Calcium 8.4 mg/dL (8.5-10.1); Potassium 4.5 mmol/L (3.5-5.1); Total Protein 7.1 g/dL (6.4-8.2)
== END | disposition home or self-care (01) ==
LOC: LAB 11:04
PROVIDERS: ATTEND Internal Medicine
DX: D46.9 Myelodysplastic syndrome, unspecified (principal)
CPT/HCPCS: 36415; 80053; 83615; 85025

== ENCOUNTER → 2017-01-25 | Outpatient (CLI) | payer OTHER | END | disposition home or self-care (01) | LOC: LAB 14:11 | PROVIDERS: ATTEND Internal Medicine | DX: D64.1 Secondary sideroblastic anemia due to disease (principal) | CPT/HCPCS: 82270 ==

== ENCOUNTER → 2017-03-01 | Outpatient (CLI) | payer OTHER ==
[~2017-03-01] MED LIST changes: -ASP81EC PO
[2017-03-01 11:31] LABS: Basophils # (auto) 0 uL; Eosinophils # (auto) 0.2 uL; Eosinophils % (auto) 3.4 % (0.0-7.0); Hematocrit 31.1 % (36.0-46.0); Hemoglobin 10.3 g/dL (12.2-16.2); Lymphocytes # (auto) 0.5 uL; Lymphocytes % (auto) 9.6 % (10.0-50.0); Mean Corpuscular Hemoglobin 31.2 pg (28.0-32.0); Mean Corpuscular Volume 94.5 fL (80.0-100.0); Mean Platelet Volume 8.2 fL (7.4-10.4); Monocytes # (auto) 0.4 uL; Monocytes % (auto) 7.7 % (0.0-12.0); Neutrophils # (auto) 4.2 uL; Neutrophils % (auto) 79.3 % (37.0-80.0); Platelet Count (auto) 140 10^3/uL (140-450); Red Cell Distribution Width 17.5 % (11.6-16.0); White Blood Cell 5.3 10^3/uL (4.4-10.8)
[2017-03-01 12:39] LABS: BUN/Creatinine Ratio 15.1; Calcium 8.9 mg/dL (8.5-10.1); Potassium 4.6 mmol/L (3.5-5.1)
[2017-03-01 12:45] LABS: Albumin 3.1 g/dL (3.4-5.0); Bilirubin, Total 0.5 mg/dL (0.2-1.0); Total Protein 6.5 g/dL (6.4-8.2)
== END | disposition home or self-care (01) ==
LOC: LAB 10:50
PROVIDERS: ATTEND Internal Medicine
DX: D46.9 Myelodysplastic syndrome, unspecified (principal)
CPT/HCPCS: 36415; 80053; 83615; 85025

== ENCOUNTER → 2017-03-16 | Outpatient (CLI) | payer OTHER ==
[2017-03-16 11:11] LABS: Basophils # (auto) 0 uL; Basophils % (auto) 0.1 % (0.0-2.0); Eosinophils # (auto) 0.1 uL; Eosinophils % (auto) 2.4 % (0.0-7.0); Hematocrit 31.7 % (36.0-46.0); Hemoglobin 10.5 g/dL (12.2-16.2); Lymphocytes # (auto) 0.6 uL; Lymphocytes % (auto) 12.4 % (10.0-50.0); Mean Corpuscular Hemoglobin 31.8 pg (28.0-32.0); Mean Corpuscular Hgb Conc. 33.1 g/dL (32.0-36.0); Mean Platelet Volume 8.1 fL (7.4-10.4); Monocytes # (auto) 0.4 uL; Monocytes % (auto) 8.6 % (0.0-12.0); Neutrophils # (auto) 3.9 uL; Neutrophils % (auto) 76.5 % (37.0-80.0); Platelet Count (auto) 177 10^3/uL (140-450); Red Cell Distribution Width 17.7 % (11.6-16.0); White Blood Cell 5.1 10^3/uL (4.4-10.8)
== END | disposition home or self-care (01) ==
LOC: LAB 09:44
PROVIDERS: ATTEND Internal Medicine
DX: D46.9 Myelodysplastic syndrome, unspecified (principal)
CPT/HCPCS: 36415; 85025

== ENCOUNTER → 2017-04-01 | Outpatient (CLI) | payer OTHER ==
[2017-04-01 11:05] LABS: Basophils # (auto) 0 uL; Basophils % (auto) 0.3 % (0.0-2.0); Eosinophils # (auto) 0.2 uL; Eosinophils % (auto) 3.5 % (0.0-7.0); Hemoglobin 10.6 g/dL (12.2-16.2); Lymphocytes # (auto) 0.8 uL; Lymphocytes % (auto) 14.4 % (10.0-50.0); Mean Corpuscular Hemoglobin 31.8 pg (28.0-32.0); Mean Corpuscular Hgb Conc. 33.3 g/dL (32.0-36.0); Mean Corpuscular Volume 95.4 fL (80.0-100.0); Mean Platelet Volume 7.6 fL (7.4-10.4); Monocytes # (auto) 0.6 uL; Monocytes % (auto) 10.8 % (0.0-12.0); Neutrophils # (auto) 3.7 uL; Platelet Count (auto) 175 10^3/uL (140-450); Red Cell Distribution Width 17.5 % (11.6-16.0); White Blood Cell 5.3 10^3/uL (4.4-10.8)
[2017-04-01 11:26] LABS: Albumin 3.4 g/dL (3.4-5.0); BUN/Creatinine Ratio 16.5; Bilirubin, Total 0.6 mg/dL (0.2-1.0); Calcium 9.7 mg/dL (8.5-10.1); Potassium 4.8 mmol/L (3.5-5.1); Total Protein 7.1 g/dL (6.4-8.2)
== END | disposition home or self-care (01) ==
LOC: LAB 10:48
PROVIDERS: ATTEND Internal Medicine
DX: D46.9 Myelodysplastic syndrome, unspecified (principal)
CPT/HCPCS: 36415; 80053; 83615; 85025

== ENCOUNTER → 2017-04-12 | Outpatient (CLI) | payer OTHER ==
[2017-04-12 10:56] LABS: Basophils # (auto) 0 uL; Basophils % (auto) 0.5 % (0.0-2.0); Eosinophils # (auto) 0.2 uL; Hematocrit 30.3 % (36.0-46.0); Hemoglobin 10.3 g/dL (12.2-16.2); Lymphocytes # (auto) 0.8 uL; Lymphocytes % (auto) 20.6 % (10.0-50.0); Mean Corpuscular Hemoglobin 32.6 pg (28.0-32.0); Mean Corpuscular Hgb Conc. 34.1 g/dL (32.0-36.0); Mean Corpuscular Volume 95.6 fL (80.0-100.0); Mean Platelet Volume 8.4 fL (7.4-10.4); Monocytes # (auto) 0.5 uL; Monocytes % (auto) 13.2 % (0.0-12.0); Neutrophils # (auto) 2.5 uL; Neutrophils % (auto) 61.7 % (37.0-80.0); Platelet Count (auto) 134 10^3/uL (140-450); Red Cell Distribution Width 17.6 % (11.6-16.0)
[2017-04-12 11:09] LABS: Albumin 3.3 g/dL (3.4-5.0); BUN/Creatinine Ratio 17.8; Calcium 9.4 mg/dL (8.5-10.1); Potassium 4.5 mmol/L (3.5-5.1)
[2017-04-12 11:12] LABS: Bilirubin, Total 0.5 mg/dL (0.2-1.0); Total Protein 6.8 g/dL (6.4-8.2)
== END | disposition home or self-care (01) ==
LOC: LAB 10:19
PROVIDERS: ATTEND Internal Medicine
DX: D46.9 Myelodysplastic syndrome, unspecified (principal)
CPT/HCPCS: 36415; 80053; 85025

== ENCOUNTER → 2017-05-18 | Outpatient (CLI) | payer OTHER ==
[2017-05-18 11:00] LABS: Basophils # (auto) 0 uL; Basophils % (auto) 0.2 % (0.0-2.0); CONDITION Y; Eosinophils # (auto) 0.2 uL; Eosinophils % (auto) 3.4 % (0.0-7.0); Hematocrit 27.7 % (36.0-46.0); Hemoglobin 9.6 g/dL (12.2-16.2); Lymphocytes # (auto) 0.8 uL; Mean Corpuscular Hemoglobin 33.4 pg (28.0-32.0); Mean Corpuscular Hgb Conc. 34.6 g/dL (32.0-36.0); Mean Corpuscular Volume 96.5 fL (80.0-100.0); Mean Platelet Volume 7.5 fL (7.4-10.4); Monocytes # (auto) 0.5 uL; Monocytes % (auto) 10.6 % (0.0-12.0); Neutrophils # (auto) 3.6 uL; Neutrophils % (auto) 69.8 % (37.0-80.0); Platelet Count (auto) 146 10^3/uL (140-450); Red Cell Distribution Width 15.9 % (11.6-16.0); White Blood Cell 5.2 10^3/uL (4.4-10.8)
[2017-05-18 11:14] LABS: Albumin 3.5 g/dL (3.4-5.0); BUN/Creatinine Ratio 16.7; Bilirubin, Total 0.4 mg/dL (0.2-1.0); Calcium 11.4 mg/dL (8.5-10.1); Potassium 4.3 mmol/L (3.5-5.1); Total Protein 6.9 g/dL (6.4-8.2)
== END | disposition home or self-care (01) ==
LOC: LAB 10:33
PROVIDERS: ATTEND Internal Medicine Cardiovascular Disease
DX: Z95.0 Presence of cardiac pacemaker (principal); I31.3 Pericardial effusion (noninflammatory)
CPT/HCPCS: 36415; 80053; 85025

== ENCOUNTER → 2017-06-02 | Outpatient (CLI) | payer OTHER | END | disposition home or self-care (01) | LOC: XYW 09:36 | PROVIDERS: ATTEND Internal Medicine Cardiovascular Disease | DX: I31.3 Pericardial effusion (noninflammatory) (principal); I05.0 Rheumatic mitral stenosis; I35.0 Nonrheumatic aortic (valve) stenosis | CPT/HCPCS: 93306 ==

== ENCOUNTER → 2017-06-02 | Outpatient (CLI) | payer OTHER ==
[2017-06-02 13:56] LABS: Basophils # (auto) 0 uL; Basophils % (auto) 0.3 % (0.0-2.0); CONDITION Y; Eosinophils # (auto) 0.2 uL; Eosinophils % (auto) 3.8 % (0.0-7.0); Hematocrit 28.8 % (36.0-46.0); Hemoglobin 10.1 g/dL (12.2-16.2); Lymphocytes # (auto) 0.9 uL; Lymphocytes % (auto) 19.1 % (10.0-50.0); Mean Corpuscular Hemoglobin 34.7 pg (28.0-32.0); Mean Corpuscular Volume 99.2 fL (80.0-100.0); Mean Platelet Volume 7.1 fL (7.4-10.4); Monocytes # (auto) 0.4 uL; Monocytes % (auto) 8.6 % (0.0-12.0); Neutrophils # (auto) 3.4 uL; Neutrophils % (auto) 68.2 % (37.0-80.0); Platelet Count (auto) 189 10^3/uL (140-450); Red Cell Distribution Width 15.1 % (11.6-16.0)
[2017-06-02 14:21] LABS: Albumin 3.4 g/dL (3.4-5.0); BUN/Creatinine Ratio 16.6; Bilirubin, Total 0.6 mg/dL (0.2-1.0); Calcium 10.9 mg/dL (8.5-10.1); Total Protein 7.3 g/dL (6.4-8.2)
== END | disposition home or self-care (01) ==
LOC: LAB 13:21
PROVIDERS: ATTEND Internal Medicine
DX: D46.9 Myelodysplastic syndrome, unspecified (principal)
CPT/HCPCS: 36415; 80053; 83615; 85025

== ENCOUNTER → 2017-06-07 | Outpatient (CLI) | payer OTHER ==
[2017-06-07 10:12] LABS: Basophils # (auto) 0 uL; Basophils % (auto) 0.2 % (0.0-2.0); CONDITION Y; Eosinophils # (auto) 0.2 uL; Eosinophils % (auto) 4.7 % (0.0-7.0); Hematocrit 30.1 % (36.0-46.0); Hemoglobin 10.6 g/dL (12.2-16.2); Lymphocytes # (auto) 0.6 uL; Lymphocytes % (auto) 11.4 % (10.0-50.0); Mean Corpuscular Hemoglobin 35.3 pg (28.0-32.0); Mean Corpuscular Hgb Conc. 35.3 g/dL (32.0-36.0); Mean Corpuscular Volume 99.8 fL (80.0-100.0); Mean Platelet Volume 7.3 fL (7.4-10.4); Monocytes # (auto) 0.4 uL; Monocytes % (auto) 8.7 % (0.0-12.0); Neutrophils # (auto) 3.9 uL; Platelet Count (auto) 192 10^3/uL (140-450); Red Cell Distribution Width 15.7 % (11.6-16.0); White Blood Cell 5.2 10^3/uL (4.4-10.8)
[2017-06-07 10:21] LABS: Urine Bilirubin Negative (Negative); Urine Blood Negative /uL (Negative); Urine Color Yellow (Yellow); Urine Glucose Normal (Normal); Urine Hyaline Cast FEW /lpf (0 - 2); Urine Ketone Negative (Negative); Urine Mucus FEW (None Seen); Urine Nitrite Negative (Negative); Urine RBC 5 /hpf (0 - 4); Urine Squamous Epithelial Cell FEW /hpf (<5); Urine Urobilinogen Normal (Negative); Urine pH 5.5 (5.0-8.0)
[2017-06-07 10:37] LABS: Albumin 3.5 g/dL (3.4-5.0); BUN/Creatinine Ratio 16.1; Calcium 11.1 mg/dL (8.5-10.1); Phosphorus 4.9 mg/dL (2.5-4.90); Potassium 4.7 mmol/L (3.5-5.1); Uric Acid 8.8 mg/dL (2.6-6.0)
[2017-06-07 10:38] LABS: Urine Protein/Creatinine Ratio 1.13
== END | disposition home or self-care (01) ==
LOC: LAB 09:37
PROVIDERS: ATTEND Internal Medicine
DX: N18.3 Chronic kidney disease, stage 3 (moderate) (principal); D63.1 Anemia in chronic kidney disease; E21.3 Hyperparathyroidism, unspecified; E78.5 Hyperlipidemia, unspecified; M10.9 Gout, unspecified; R80.9 Proteinuria, unspecified; E55.9 Vitamin D deficiency, unspecified
CPT/HCPCS: 36415; 80069; 81001; 82306; 82570; 83970; 84156; 84550; 85025

== ENCOUNTER 2017-06-15 07:05 | Inpatient (IN) | payer OTHER ==
[2017-06-14 16:23] LABS: Urine Bilirubin Negative (Negative); Urine Blood Negative /uL (Negative); Urine Ca Oxalate Crystal MOD (None Seen); Urine Color Yellow (Yellow); Urine Glucose Normal (Normal); Urine Hyaline Cast FEW /lpf (0 - 2); Urine Ketone Negative (Negative); Urine Nitrite Negative (Negative); Urine RBC 1 /hpf (0 - 4); Urine Squamous Epithelial Cell FEW /hpf (<5); Urine Urobilinogen Normal (Negative)
[2017-06-14 16:30] LABS: Basophils # (auto) 0 uL; Basophils % (auto) 0.4 % (0.0-2.0); CONDITION Y; Eosinophils # (auto) 0.2 uL; Eosinophils % (auto) 5.1 % (0.0-7.0); Hematocrit 27.6 % (36.0-46.0); Hemoglobin 9.4 g/dL (12.2-16.2); Lymphocytes # (auto) 0.8 uL; Mean Corpuscular Hemoglobin 34.3 pg (28.0-32.0); Mean Corpuscular Hgb Conc. 33.9 g/dL (32.0-36.0); Mean Corpuscular Volume 101.2 fL (80.0-100.0); Mean Platelet Volume 7.6 fL (7.4-10.4); Monocytes # (auto) 0.5 uL; Neutrophils # (auto) 2.9 uL; Neutrophils % (auto) 65.5 % (37.0-80.0); Platelet Count (auto) 164 10^3/uL (140-450); Red Cell Distribution Width 14.8 % (11.6-16.0); SUSPECT SEE PRINTOUT; White Blood Cell 4.4 10^3/uL (4.4-10.8)
[2017-06-14 16:33] LABS: Albumin 3.4 g/dL (3.4-5.0); Bilirubin, Total 0.5 mg/dL (0.2-1.0); Calcium 11.9 mg/dL (8.5-10.1); Potassium 5.1 mmol/L (3.5-5.1); Total Protein 7.2 g/dL (6.4-8.2)
[2017-06-14 16:40] LABS: INR 0.97 (0.9-1.15); Partial Thromboplastin Time 23.8 sec (22.64-33.71); Prothrombin Time 10.6 sec (9.37-12.3)
[~2017-06-15] VITALS: Ht 149.9 cm; Wt 47.6 kg
[2017-06-15] MEDS ORDERED: ceFAZolin 1GM/50ML D5W 0 ML IV ONE (08:21)
[2017-06-15] MEDS ORDERED: ETOMIDATE (2MG/ML) 20ML VIAL IV ONE (10:19)
[2017-06-15] MEDS ORDERED: LIDOCAINE HCL 2% TOP JELLY 5ML TOP ONE (10:19)
[2017-06-15] MEDS ORDERED: LIDOCAINE 2%HCL (LOCAL ANESTH.) INJ 20ML MDV ONE (10:19)
[2017-06-15] MEDS ORDERED: CLINDAMYCIN 600MG IV 50 ML IV ONE (11:03)
[2017-06-15] MEDS ORDERED: ESMOLOL HCL 10 ML IV ONE (11:20)
[2017-06-15] MEDS ORDERED: fentaNYL CITRATE 100 MCG/2 ML VL ONE (11:32)
[2017-06-15] MEDS: SODIUM CHLORIDE 0.9% 500 ML IV SCH ×2 (11:42→18:31)
[2017-06-15] MEDS ORDERED: SODIUM CHLORIDE 0.9% 1,000 ML IV SCH (11:42)
[2017-06-15] MEDS ORDERED: METOCLOPRAMIDE HCL 5MG/ml INJ 2ml VIAL IV PRN (11:45)
[2017-06-15] MEDS ORDERED: IPRATROPIUM BROM 0.5 MG/2.5ML INH SOL NEB PRN (11:45)
[2017-06-15] MEDS ORDERED: ALBUMIN 5% 250 ML IV PRN (11:45)
[2017-06-15] MEDS ORDERED: MORPHINE SULF INJ 2 MG/ML SYRINGE 1ML IV PRN ×2 (11:45→12:01)
[2017-06-15] MEDS ORDERED: ACCU-CHEK COMFORT CURVE STRIP VI ONE (12:00)
[2017-06-15] MEDS ORDERED: METOCLOPRAMIDE HCL 5MG/ml INJ 2ml VIAL IV ONE (12:00)
[2017-06-15] MEDS ORDERED: ONDANSETRON HCL 4 MG/2 ML VIAL IV ONE (12:00)
[2017-06-15] MEDS ORDERED: HYDROmorphone HCL 2 MG/ML VL IV PRN (12:00)
[2017-06-15] MEDS ORDERED: hydrALAZINE HCL 20 MG/ML VL IV PRN ×2 (12:00→15:30)
[2017-06-15] MEDS ORDERED: ePHEDrine SULFATE 50 MG/ML AMP IV PRN (12:00)
[2017-06-15] MEDS ORDERED: LABETALOL HCL 5 MG/ML 4ML SYRINGE IV PRN (12:00)
[2017-06-15] MEDS: HYDROmorphone HCL 2 MG/ML VL ONE ×8 (12:10→15:20)
[2017-06-15] MEDS ORDERED: HYDROcodone-ACET 5/325MG TAB PO PRN (12:15)
[2017-06-15] MEDS ORDERED: diphenhdrAMINE HCL 25 MG CAP PO PRN (12:30)
[2017-06-15 13:04] LABS: Albumin 3.1 g/dL (3.4-5.0); BUN/Creatinine Ratio 17.2; Bilirubin, Total 0.6 mg/dL (0.2-1.0); Calcium 10.3 mg/dL (8.5-10.1); Magnesium 2.3 mg/dL (1.6-2.6); Potassium 4.4 mmol/L (3.5-5.1); Total Protein 6.6 g/dL (6.4-8.2)
[2017-06-15] MEDS: ceFAZolin 1GM/50ML D5W 50 ML IV SCH ×2 (14:00→22:35)
[2017-06-15] MEDS ORDERED: DEXTROSE (50%) 50ML SYRG IV PRN (15:30)
[2017-06-15 16:10] VITALS: BP 126/78
[2017-06-15] MEDS ORDERED: NovoloG Insulin 1unit/0.01ml Soln (100units/ml) SC SCH ×2 (17:00)
[2017-06-15] MEDS: InsuLIN REG 1unit/0.01ml Soln (100units/ml) SC SCH ×2 (17:00→22:00)
[2017-06-15] MEDS ORDERED: EPOETIN ALFA 10,000 UNIT/1 ML VIAL SC ONE (18:00)
[2017-06-15] MEDS: ACCU-CHEK COMFORT CURVE STRIP VI SCH ×2 (18:28→22:00)
[2017-06-15] MEDS: Boost Glucose Control 8 Ounces PO SCH (18:29)
[2017-06-15] MEDS: PANTOPRAZOLE 40 MG/10 ML VIAL IV SCH (18:34)
[2017-06-15 20:33] VITALS: BP 126/78
[2017-06-15] MEDS ORDERED: PRAVASTATIN SODIUM 20 MG TAB PO SCH (22:00)
[2017-06-15] MEDS ORDERED: GABAPENTIN 100 MG CAP PO SCH ×2 (22:00)
[2017-06-15] MEDS ORDERED: CARVEDILOL 3.125 MG TAB PO SCH (22:00)
[2017-06-15] MEDS: CHLORHEXIDINE 0.12% ORAL rinse 473ML MT SCH (22:00)
[2017-06-15] MEDS: IPRATROPIUM BROM 0.5 MG/2.5ML INH SOL NEB SCH (22:15)
[2017-06-15] MEDS: PRAVASTATIN SODIUM 20 MG TAB PO SCH (22:36)
[2017-06-15] MEDS: CARVEDILOL 3.125 MG TAB PO SCH (22:39)
[2017-06-16 05:17] LABS: Basophils # (auto) 0 uL; CONDITION Y; Eosinophils # (auto) 0 uL; Eosinophils % (auto) 0.1 % (0.0-7.0); Hemoglobin 9.9 g/dL (12.2-16.2); Lymphocytes # (auto) 0.6 uL; Lymphocytes % (auto) 6.4 % (10.0-50.0); Mean Corpuscular Hemoglobin 34.3 pg (28.0-32.0); Mean Corpuscular Volume 100.8 fL (80.0-100.0); Mean Platelet Volume 7.5 fL (7.4-10.4); Monocytes # (auto) 0.6 uL; Monocytes % (auto) 5.8 % (0.0-12.0); Neutrophils # (auto) 8.7 uL; Neutrophils % (auto) 87.7 % (37.0-80.0); Platelet Count (auto) 153 10^3/uL (140-450); Red Cell Distribution Width 14.4 % (11.6-16.0); White Blood Cell 9.9 10^3/uL (4.4-10.8)
[2017-06-16 05:30] LABS: Albumin 2.9 g/dL (3.4-5.0); Calcium 9.7 mg/dL (8.5-10.1); Magnesium 2.1 mg/dL (1.6-2.6); Potassium 4.3 mmol/L (3.5-5.1)
[2017-06-16 05:32] LABS: BUN/Creatinine Ratio 16.3
[2017-06-16 05:35] LABS: Bilirubin, Total 0.5 mg/dL (0.2-1.0); Total Protein 6.3 g/dL (6.4-8.2)
[2017-06-16 06:00] VITALS: BP 128/58
[2017-06-16] MEDS: ceFAZolin 1GM/50ML D5W 50 ML IV SCH ×3 (06:10→21:27)
[2017-06-16] MEDS: ACCU-CHEK COMFORT CURVE STRIP VI SCH ×4 (06:24→22:00)
[2017-06-16] MEDS: InsuLIN REG 1unit/0.01ml Soln (100units/ml) SC SCH ×4 (06:30→22:00)
[2017-06-16] MEDS: IPRATROPIUM BROM 0.5 MG/2.5ML INH SOL NEB SCH ×3 (06:55→22:00)
[2017-06-16 07:30] VITALS: BP 120/45
[2017-06-16] MEDS: Boost Glucose Control 8 Ounces PO SCH ×3 (08:20→17:45)
[2017-06-16] MEDS ORDERED: SENNA 8.6 MG TAB PO PRN (09:30)
[2017-06-16] MEDS: CHLORHEXIDINE 0.12% ORAL rinse 473ML MT SCH ×2 (09:43→21:32)
[2017-06-16] MEDS: PANTOPRAZOLE 40 MG/10 ML VIAL IV SCH (09:43)
[2017-06-16] MEDS: B-COMPLEX W/ C & FOLIC ACID(NEPHROVITE TAB) PO SCH (09:44)
[2017-06-16] MEDS: CARVEDILOL 3.125 MG TAB PO SCH ×2 (09:44→21:31)
[2017-06-16] MEDS: LISINOPRIL 5 MG TAB PO SCH (09:44)
[2017-06-16] MEDS ORDERED: glipiZIDE 5 MG TAB PO ONE (09:45)
[2017-06-16] MEDS: SERTRALINE HCL 50 MG TAB PO SCH (09:46)
[2017-06-16] MEDS: ENOXAPARIN SOD 30 MG/0.3 ML SYRINGE SC SCH (09:46)
[2017-06-16] MEDS ORDERED: LISINOPRIL 20 MG TAB PO SCH (10:00)
[2017-06-16] MEDS ORDERED: LISINOPRIL 5 MG TAB PO SCH (10:00)
[2017-06-16] MEDS ORDERED: FERROUS SULFATE 325 MG TAB PO SCH (10:00)
[2017-06-16] MEDS ORDERED: AMLO10TA2 PO (10:42)
[2017-06-16] MEDS ORDERED: ATOR10TA52 PO ×2 (10:42→10:47)
[2017-06-16] MEDS ORDERED: LISI10TA6 PO (10:42)
[2017-06-16] MEDS ORDERED: FER325T PO (10:42)
[2017-06-16] MEDS ORDERED: INSU50IN3 SC ×2 (10:42→10:46)
[2017-06-16] MEDS ORDERED: GAB100C PO (10:46)
[2017-06-16] MEDS ORDERED: MIRT15TA3 PO (10:46)
[2017-06-16] MEDS: DOCUSATE SOD 100 MG CAP PO SCH ×2 (10:59→21:27)
[2017-06-16] MEDS ORDERED: SODIUM CHLORIDE 0.9% 1,000 ML IV SCH ×2 (11:42)
[2017-06-16 12:00] VITALS: BP 143/62
[2017-06-16] MEDS: SODIUM CHLORIDE 0.9% 1,000 ML IV SCH ×2 (12:54→21:45)
[2017-06-16 15:47] VITALS: BP 123/50
[2017-06-16] MEDS: FERROUS SULFATE 325 MG TAB PO SCH (17:45)
[2017-06-16 20:00] VITALS: BP 132/55
[2017-06-16] MEDS: PRAVASTATIN SODIUM 20 MG TAB PO SCH (21:31)
[2017-06-16] MEDS: GABAPENTIN 100 MG CAP PO SCH (21:32)
[2017-06-16 23:44] VITALS: BP 141/55
[2017-06-17] VITALS (7 sets, daily range): BP systolic 104–147; BP diastolic 39–89
[2017-06-17 05:03] LABS: Hematocrit 27.3 % (36.0-46.0); Hemoglobin 9.5 g/dL (12.2-16.2)
[2017-06-17 05:36] LABS: BUN/Creatinine Ratio 17.7; Calcium 9.6 mg/dL (8.5-10.1); Potassium 4.1 mmol/L (3.5-5.1)
[2017-06-17] MEDS: IPRATROPIUM BROM 0.5 MG/2.5ML INH SOL NEB SCH ×3 (06:19→22:20)
[2017-06-17] MEDS: ceFAZolin 1GM/50ML D5W 50 ML IV SCH (06:21)
[2017-06-17] MEDS: InsuLIN REG 1unit/0.01ml Soln (100units/ml) SC SCH ×4 (06:22→21:39)
[2017-06-17] MEDS: ACCU-CHEK COMFORT CURVE STRIP VI SCH ×4 (06:23→21:39)
[2017-06-17] MEDS ORDERED: glipiZIDE 5 MG TAB PO SCH (07:00)
[2017-06-17] MEDS: FERROUS SULFATE 325 MG TAB PO SCH ×2 (09:00→18:00)
[2017-06-17] MEDS: Boost Glucose Control 8 Ounces PO SCH ×3 (09:00→18:00)
[2017-06-17] MEDS: B-COMPLEX W/ C & FOLIC ACID(NEPHROVITE TAB) PO SCH (11:00)
[2017-06-17] MEDS: ENOXAPARIN SOD 30 MG/0.3 ML SYRINGE SC SCH (11:00)
[2017-06-17] MEDS: GABAPENTIN 100 MG CAP PO SCH (11:00)
[2017-06-17] MEDS: CHLORHEXIDINE 0.12% ORAL rinse 473ML MT SCH ×2 (11:00→21:39)
[2017-06-17] MEDS: SERTRALINE HCL 50 MG TAB PO SCH (11:00)
[2017-06-17] MEDS: DOCUSATE SOD 100 MG CAP PO SCH ×2 (11:00→21:39)
[2017-06-17] MEDS: PANTOPRAZOLE 40 MG TAB PO SCH (11:00)
[2017-06-17] MEDS: LISINOPRIL 5 MG TAB PO SCH (11:30)
[2017-06-17] MEDS: CARVEDILOL 3.125 MG TAB PO SCH ×2 (11:30→21:39)
[2017-06-17] MEDS: PRAVASTATIN SODIUM 20 MG TAB PO SCH (21:39)
[2017-06-18 04:09] VITALS: BP 112/42
[2017-06-18 05:37] LABS: Basophils # (auto) 0 uL; Basophils % (auto) 0.2 % (0.0-2.0); CONDITION Y; Eosinophils # (auto) 0.1 uL; Eosinophils % (auto) 2.2 % (0.0-7.0); Hematocrit 26.3 % (36.0-46.0); Hemoglobin 8.9 g/dL (12.2-16.2); Lymphocytes # (auto) 0.7 uL; Lymphocytes % (auto) 12.1 % (10.0-50.0); Mean Corpuscular Hemoglobin 34.1 pg (28.0-32.0); Mean Corpuscular Volume 100.4 fL (80.0-100.0); Mean Platelet Volume 7.4 fL (7.4-10.4); Monocytes # (auto) 0.6 uL; Monocytes % (auto) 11.7 % (0.0-12.0); Neutrophils # (auto) 4.1 uL; Neutrophils % (auto) 73.8 % (37.0-80.0); Platelet Count (auto) 143 10^3/uL (140-450); Red Cell Distribution Width 14.4 % (11.6-16.0); White Blood Cell 5.5 10^3/uL (4.4-10.8)
[2017-06-18 06:07] LABS: BUN/Creatinine Ratio 19.8; Calcium 9.4 mg/dL (8.5-10.1)
[2017-06-18] MEDS: InsuLIN REG 1unit/0.01ml Soln (100units/ml) SC SCH ×2 (06:46→16:52)
[2017-06-18] MEDS: ACCU-CHEK COMFORT CURVE STRIP VI SCH ×2 (06:47→11:30)
[2017-06-18] MEDS: IPRATROPIUM BROM 0.5 MG/2.5ML INH SOL NEB SCH ×2 (06:58→12:17)
[2017-06-18 08:00] VITALS: BP 140/54
[2017-06-18] MEDS: Boost Glucose Control 8 Ounces PO SCH ×2 (08:00→16:53)
[2017-06-18] MEDS: B-COMPLEX W/ C & FOLIC ACID(NEPHROVITE TAB) PO SCH (09:45)
[2017-06-18] MEDS: PANTOPRAZOLE 40 MG TAB PO SCH (09:48)
[2017-06-18] MEDS: LISINOPRIL 5 MG TAB PO SCH (09:48)
[2017-06-18] MEDS: GABAPENTIN 100 MG CAP PO SCH (09:48)
[2017-06-18] MEDS: SERTRALINE HCL 50 MG TAB PO SCH (09:48)
[2017-06-18] MEDS: FERROUS SULFATE 325 MG TAB PO SCH (09:48)
[2017-06-18] MEDS: DOCUSATE SOD 100 MG CAP PO SCH (09:48)
[2017-06-18] MEDS: CHLORHEXIDINE 0.12% ORAL rinse 473ML MT SCH (09:49)
[2017-06-18] MEDS: CARVEDILOL 3.125 MG TAB PO SCH (09:49)
[2017-06-18] MEDS: ENOXAPARIN SOD 30 MG/0.3 ML SYRINGE SC SCH (09:49)
[2017-06-18] MEDS ORDERED: SODIUM CHLORIDE 0.9% 1,000 ML IV SCH (11:42)
[2017-06-18 12:00] VITALS: BP 132/51
[2017-06-18] MEDS ORDERED: CAR3125T PO (13:59)
[2017-06-18] MEDS ORDERED: LISI-275 PO (13:59)
[2017-06-18 15:13] VITALS: BP 121/48
[2017-06-18 15:30] VITALS: BP 121/48
== END 2017-06-18 14:30 | disposition home or self-care (01) | DRG 271 ==
LOC: SUR 07:05 → ICU CENTRL 07:06 → DOU IN ICU 16:35
PROVIDERS: ADMIT Specialist; ATTEND Internal Medicine
PROC: 02BN3ZX Excision of Pericardium, Percutaneous Approach, Diagnostic (ICD-10-PCS; 2017-06-15)
PROC: 0W9D00Z Drainage of Pericardial Cavity with Drainage Device, Open Approach (ICD-10-PCS; principal; 2017-06-15 10:21)
DX: I31.3 Pericardial effusion (noninflammatory) (principal); E44.1 Mild protein-calorie malnutrition; N18.4 Chronic kidney disease, stage 4 (severe); I42.9 Cardiomyopathy, unspecified; M06.9 Rheumatoid arthritis, unspecified; D63.8 Anemia in other chronic diseases classified elsewhere; E11.22 Type 2 diabetes mellitus with diabetic chronic kidney disease; I12.9 Hypertensive chronic kidney disease with stage 1 through stage 4 chronic kidney disease, or unspecified chronic kidney disease; Z68.21 Body mass index [BMI] 21.0-21.9, adult; Z85.72 Personal history of non-Hodgkin lymphomas; Z95.0 Presence of cardiac pacemaker
CPT/HCPCS: 36415; 71010; 71250; 80048; 80053; 81001; 82962; 83735; 85014; 85018; 85025; 85610; 85730; 86850; 86900; 86901; 87070; 87075; 87081; 87205; 93005; 93306; 94640; 97110; 97116; 97530; C9113; J0690; J0885; J1815; J3490

== ENCOUNTER 2017-07-13 10:14 | Inpatient (IN) | payer OTHER ==
[~2017-07-13] VITALS: Ht 157.5 cm; Wt 43.8 kg
[~2017-07-13 10:14] MED LIST changes: -AML5T PO; +ATOR10TA52 PO; +CAR3125T PO; -CARV6.25 PO; -FER325T PO; +GAB100C PO; +INSU50IN3 SC; +LISI-275 PO; -LISI-646 PO; -NOVOLIN SC; -SERT-275 PO; -SIMV10TA84 PO
[2017-07-13] MEDS ORDERED: SODIUM CHLORIDE 0.9% 1,000 ML IV ONE (10:45)
[2017-07-13 10:48] LABS: Basophils # (auto) 0 uL; Basophils % (auto) 0.2 % (0.0-2.0); CONDITION Y; Eosinophils # (auto) 0.2 uL; Hematocrit 33.2 % (36.0-46.0); Hemoglobin 11.2 g/dL (12.2-16.2); Lymphocytes # (auto) 0.8 uL; Mean Corpuscular Hgb Conc. 33.8 g/dL (32.0-36.0); Mean Corpuscular Volume 100.7 fL (80.0-100.0); Mean Platelet Volume 7.3 fL (7.4-10.4); Monocytes # (auto) 0.6 uL; Monocytes % (auto) 11.2 % (0.0-12.0); Neutrophils # (auto) 3.6 uL; Neutrophils % (auto) 70.6 % (37.0-80.0); Platelet Count (auto) 141 10^3/uL (140-450); White Blood Cell 5.2 10^3/uL (4.4-10.8)
[2017-07-13 11:14] LABS: Albumin 3.4 g/dL (3.4-5.0); BUN/Creatinine Ratio 21.1; Bilirubin, Total 0.7 mg/dL (0.2-1.0); Calcium 12.2 mg/dL (8.5-10.1); Magnesium 2.2 mg/dL (1.6-2.6); Potassium 3.9 mmol/L (3.5-5.1); Total Protein 6.4 g/dL (6.4-8.2)
[2017-07-13 11:29] LABS: INR 1.11 (0.9-1.15); Partial Thromboplastin Time 25.4 sec (22.64-33.71); Prothrombin Time 12.1 sec (9.37-12.3)
[2017-07-13] MEDS ORDERED: LEVOFLOXACIN 250MG 50 ML IV ONE (14:15)
[2017-07-13] MEDS ORDERED: DEXTROSE (50%) 50ML SYRG IV PRN (14:15)
[2017-07-13] MEDS ORDERED: PANTOPRAZOLE 40 MG TAB PO ONE (14:30)
[2017-07-13] MEDS ORDERED: CARVEDILOL 12.5 MG TAB PO ONE (14:30)
[2017-07-13] MEDS ORDERED: GABAPENTIN 100 MG CAP PO ONE (14:30)
[2017-07-13] MEDS ORDERED: LISINOPRIL 5 MG TAB PO ONE (14:30)
[2017-07-13] MEDS ORDERED: CHOLECALCIFEROL (VITD3) 1,000 UNIT TAB PO ONE (14:30)
[2017-07-13] MEDS ORDERED: FERROUS SULFATE 325 MG TAB PO ONE (14:30)
[2017-07-13] MEDS ORDERED: B-COMPLEX W/ C & FOLIC ACID(NEPHROVITE TAB) PO ONE (14:30)
[2017-07-13] MEDS ORDERED: ASPirin-EC 81 mg tab PO ONE (14:30)
[2017-07-13 14:51] LABS: Urine RBC None Seen /hpf (0 - 4)
[2017-07-13 15:10] LABS: Urine Bilirubin Negative (Negative); Urine Blood Negative /uL (Negative); Urine Color Yellow (Yellow); Urine Glucose Normal (Normal); Urine Ketone Negative (Negative); Urine Mucus FEW (None Seen); Urine Nitrite Negative (Negative); Urine Squamous Epithelial Cell FEW /hpf (<5); Urine Urobilinogen Normal (Negative); Urine pH 5.5 (5.0-8.0)
[2017-07-13] MEDS ORDERED: ACETAMINOPHEN 325 MG TAB PO PRN (15:45)
[2017-07-13] MEDS ORDERED: ONDANSETRON HCL 4 MG/2 ML VIAL IV PRN (15:45)
[2017-07-13] MEDS ORDERED: MORPHINE SULF INJ 2 MG/ML SYRINGE 1ML IV PRN (15:45)
[2017-07-13] MEDS ORDERED: DOCUSATE SOD 100 MG CAP PO PRN (15:45)
[2017-07-13] MEDS ORDERED: TEMAZEPAM 15 MG CAP PO PRN (15:45)
[2017-07-13] MEDS ORDERED: HYDROcodone-ACET 5/325MG TAB PO PRN (15:45)
[2017-07-13] MEDS: MULTIPLE VITAMIN TAB PO SCH (16:11)
[2017-07-13] MEDS: ENOXAPARIN SOD 30 MG/0.3 ML SYRINGE SC SCH (16:22)
[2017-07-13] MEDS: ACCU-CHEK COMFORT CURVE STRIP VI SCH ×2 (17:50→22:00)
[2017-07-13] MEDS: InsuLIN REG 1unit/0.01ml Soln (100units/ml) SC SCH ×2 (17:50→22:00)
[2017-07-13] MEDS: FERROUS SULFATE 325 MG TAB PO SCH (18:19)
[2017-07-13 22:00] VITALS: BP 145/59
[2017-07-13] MEDS ORDERED: FAMOTIDINE 20 MG TAB PO SCH (22:00)
[2017-07-13 22:15] VITALS: BP 145/59
[2017-07-13] MEDS: SODIUM CHLOR 0.9% PF (SALINE LOCK) 10ML VIAL IV SCH (23:34)
[2017-07-13] MEDS: CARVEDILOL 12.5 MG TAB PO SCH (23:35)
[2017-07-13] MEDS: GABAPENTIN 100 MG CAP PO SCH (23:35)
[2017-07-13] MEDS: ATORVASTATIN 20 MG TAB PO SCH (23:35)
[2017-07-14] VITALS (7 sets, daily range): BP systolic 126–145; BP diastolic 50–98
[2017-07-14] MEDS: SODIUM CHLOR 0.9% PF (SALINE LOCK) 10ML VIAL IV SCH ×3 (06:00→21:59)
[2017-07-14 06:21] LABS: Basophils # (auto) 0 uL; Basophils % (auto) 0.3 % (0.0-2.0); CONDITION Y; Eosinophils # (auto) 0.2 uL; Hematocrit 31.3 % (36.0-46.0); Hemoglobin 10.6 g/dL (12.2-16.2); Lymphocytes # (auto) 0.7 uL; Lymphocytes % (auto) 15.6 % (10.0-50.0); Mean Corpuscular Hemoglobin 33.9 pg (28.0-32.0); Mean Corpuscular Hgb Conc. 33.8 g/dL (32.0-36.0); Mean Corpuscular Volume 100.5 fL (80.0-100.0); Mean Platelet Volume 7.7 fL (7.4-10.4); Monocytes # (auto) 0.5 uL; Monocytes % (auto) 11.7 % (0.0-12.0); Neutrophils # (auto) 3.2 uL; Neutrophils % (auto) 68.4 % (37.0-80.0); Platelet Count (auto) 134 10^3/uL (140-450); Red Cell Distribution Width 14.6 % (11.6-16.0); White Blood Cell 4.6 10^3/uL (4.4-10.8)
[2017-07-14] MEDS: InsuLIN REG 1unit/0.01ml Soln (100units/ml) SC SCH ×4 (06:35→22:00)
[2017-07-14] MEDS: ACCU-CHEK COMFORT CURVE STRIP VI SCH ×4 (06:35→22:00)
[2017-07-14 06:46] LABS: BUN/Creatinine Ratio 20.7; Bilirubin, Total 0.7 mg/dL (0.2-1.0); Calcium 11.3 mg/dL (8.5-10.1); Potassium 3.7 mmol/L (3.5-5.1); Total Protein 5.9 g/dL (6.4-8.2)
[2017-07-14] MEDS: CARVEDILOL 12.5 MG TAB PO SCH ×2 (11:37→21:57)
[2017-07-14] MEDS: CHOLECALCIFEROL (VITD3) 1,000 UNIT TAB PO SCH (11:37)
[2017-07-14] MEDS: MULTIPLE VITAMIN TAB PO SCH (11:38)
[2017-07-14] MEDS: PANTOPRAZOLE 40 MG TAB PO SCH (11:39)
[2017-07-14] MEDS: GABAPENTIN 100 MG CAP PO SCH ×2 (11:40→21:58)
[2017-07-14] MEDS: LISINOPRIL 5 MG TAB PO SCH (11:40)
[2017-07-14] MEDS: ASPirin-EC 81 mg tab PO SCH (11:40)
[2017-07-14] MEDS: LEVOFLOXACIN 250MG 50 ML IV SCH (11:41)
[2017-07-14] MEDS: FERROUS SULFATE 325 MG TAB PO SCH ×2 (11:48→18:54)
[2017-07-14] MEDS: B-COMPLEX W/ C & FOLIC ACID(NEPHROVITE TAB) PO SCH (11:52)
[2017-07-14] MEDS: ENOXAPARIN SOD 30 MG/0.3 ML SYRINGE SC SCH (17:59)
[2017-07-14] MEDS: ATORVASTATIN 20 MG TAB PO SCH (21:59)
[2017-07-15 05:12] VITALS: BP 148/65
[2017-07-15] MEDS: ACCU-CHEK COMFORT CURVE STRIP VI SCH ×4 (06:15→21:40)
[2017-07-15] MEDS: InsuLIN REG 1unit/0.01ml Soln (100units/ml) SC SCH ×4 (06:15→21:41)
[2017-07-15] MEDS: SODIUM CHLOR 0.9% PF (SALINE LOCK) 10ML VIAL IV SCH ×3 (06:15→21:39)
[2017-07-15 07:30] VITALS: BP 122/61
[2017-07-15 08:14] VITALS: BP 122/61
[2017-07-15] MEDS: FERROUS SULFATE 325 MG TAB PO SCH ×2 (10:58→18:59)
[2017-07-15] MEDS: LEVOFLOXACIN 250MG 50 ML IV SCH (10:59)
[2017-07-15] MEDS: ASPirin-EC 81 mg tab PO SCH (10:59)
[2017-07-15] MEDS: MULTIPLE VITAMIN TAB PO SCH (11:00)
[2017-07-15] MEDS: B-COMPLEX W/ C & FOLIC ACID(NEPHROVITE TAB) PO SCH (11:01)
[2017-07-15] MEDS: GABAPENTIN 100 MG CAP PO SCH ×2 (11:01→21:39)
[2017-07-15] MEDS: PANTOPRAZOLE 40 MG TAB PO SCH (11:06)
[2017-07-15] MEDS: CHOLECALCIFEROL (VITD3) 1,000 UNIT TAB PO SCH (11:06)
[2017-07-15] MEDS: CARVEDILOL 12.5 MG TAB PO SCH ×2 (11:09→21:39)
[2017-07-15] MEDS: LISINOPRIL 5 MG TAB PO SCH (11:10)
[2017-07-15 12:39] VITALS: BP 104/47
[2017-07-15] MEDS: ENOXAPARIN SOD 30 MG/0.3 ML SYRINGE SC SCH (16:51)
[2017-07-15 17:48] VITALS: BP 120/52
[2017-07-15] MEDS: ATORVASTATIN 20 MG TAB PO SCH (21:39)
[2017-07-15 22:00] VITALS: BP 151/82
[2017-07-16 05:00] VITALS: BP 146/56
[2017-07-16] MEDS: SODIUM CHLOR 0.9% PF (SALINE LOCK) 10ML VIAL IV SCH ×2 (06:13→14:00)
[2017-07-16] MEDS: ACCU-CHEK COMFORT CURVE STRIP VI SCH ×3 (06:13→17:00)
[2017-07-16] MEDS: InsuLIN REG 1unit/0.01ml Soln (100units/ml) SC SCH ×3 (06:14→17:00)
[2017-07-16 07:30] VITALS: BP 140/56
[2017-07-16] MEDS: FERROUS SULFATE 325 MG TAB PO SCH ×2 (08:35→18:32)
[2017-07-16 09:00] VITALS: BP_SYST 140; BP_SYST 158; BP_DIAS 100; BP_DIAS 56
[2017-07-16] MEDS ORDERED: HEPARIN SODIUM (PORCINE) 5000 UNITS/ML 1ML VIAL SC SCH (10:00)
[2017-07-16] MEDS ORDERED: LEVOFLOXACIN 250 MG TAB PO SCH (10:00)
[2017-07-16] MEDS: CARVEDILOL 12.5 MG TAB PO SCH (10:00)
[2017-07-16] MEDS: LISINOPRIL 5 MG TAB PO SCH (10:00)
[2017-07-16] MEDS: ASPirin-EC 81 mg tab PO SCH (11:20)
[2017-07-16] MEDS: CHOLECALCIFEROL (VITD3) 1,000 UNIT TAB PO SCH (11:20)
[2017-07-16] MEDS: MULTIPLE VITAMIN TAB PO SCH (11:23)
[2017-07-16] MEDS: GABAPENTIN 100 MG CAP PO SCH (11:23)
[2017-07-16] MEDS: PANTOPRAZOLE 40 MG TAB PO SCH (11:23)
[2017-07-16] MEDS: B-COMPLEX W/ C & FOLIC ACID(NEPHROVITE TAB) PO SCH (11:24)
[2017-07-16 12:55] VITALS: BP 140/55
[2017-07-16] MEDS ORDERED: LISI2.5T47 PO (13:16)
[2017-07-16] MEDS ORDERED: CARV12.544 PO (13:17)
[2017-07-16] MEDS ORDERED: INSU50IN3 SC (14:40)
[2017-07-16] MEDS ORDERED: MIRT15TA3 PO (14:45)
[2017-07-16 15:58] VITALS: BP 140/55
[2017-07-16 16:50] VITALS: BP 124/53
== END 2017-07-16 18:00 | disposition home or self-care (01) | DRG 70 ==
LOC: EDBD 10:14 → ER 10:14 → OVERFLOW 10:15 → WEST WING 22:09
PROVIDERS: ADMIT Internal Medicine; ATTEND Family Medicine
DX: I67.9 Cerebrovascular disease, unspecified (principal); G92 Toxic encephalopathy; E43 Unspecified severe protein-calorie malnutrition; C85.90 Non-Hodgkin lymphoma, unspecified, unspecified site; E11.21 Type 2 diabetes mellitus with diabetic nephropathy; I13.0 Hypertensive heart and chronic kidney disease with heart failure and stage 1 through stage 4 chronic kidney disease, or unspecified chronic kidney disease; I50.9 Heart failure, unspecified; N39.0 Urinary tract infection, site not specified; D63.8 Anemia in other chronic diseases classified elsewhere; S00.03XA Contusion of scalp, initial encounter; I67.2 Cerebral atherosclerosis; E83.52 Hypercalcemia; N18.9 Chronic kidney disease, unspecified; E87.6 Hypokalemia; E83.51 Hypocalcemia; F02.80 Dementia in other diseases classified elsewhere, unspecified severity, without behavioral disturbance, psychotic disturbance, mood disturbance, and anxiety; I25.10 Atherosclerotic heart disease of native coronary artery without angina pectoris; E11.22 Type 2 diabetes mellitus with diabetic chronic kidney disease; J44.9 Chronic obstructive pulmonary disease, unspecified; K21.9 Gastro-esophageal reflux disease without esophagitis; Y93.89 Activity, other specified; Y92.89 Other specified places as the place of occurrence of the external cause; W01.0XXA Fall on same level from slipping, tripping and stumbling without subsequent striking against object, initial encounter; Z79.4 Long term (current) use of insulin; Z82.49 Family history of ischemic heart disease and other diseases of the circulatory system; Z83.3 Family history of diabetes mellitus
CPT/HCPCS: 36415; 51702; 70450; 71010; 80053; 81001; 82140; 82962; 83036; 83605; 83735; 84484; 85025; 85610; 85730; 87040; 87081; 87086; 92610; 93005; 93886; 94761; 95819; 96360; 97116; 97163; 97530